=== PATIENT | female | born 1970 | race African-American/Black ===

== ENCOUNTER → 2020-01-20 | Day surgery (SDC) | payer OTHER ==
[~2020-01-20] MED LIST: AMITRIPTYLINE H50 MG PO; LIDOCAINE HCL 2% LOCAL INJ 5 ML SDV VIAL INJ ONE; MAXZIDE 37.5 M1 EACH PO; MELOXICAM7.5 MG PO; METOPROLOL SUCC50 MG PO; MIDAZOLAM HCL 2 MG/2 ML VIAL ONE; PROPOFOL IV EMULSION 10 MG/ML 20 ML VIAL ONE; SINGULAIR10 MG PO; SUMATRIPTAN SUC25 MG PO
[2020-01-20 08:00] VITALS: BP 105/80
--- NOTE | 2020-01-20 09:48 | Operative Report ---
DATE OF PROCEDURE: 01/20/2020 SURGEON: Stuart Mcgovern MD PREOPERATIVE DIAGNOSIS: Chronic gastroesophageal reflux disease. POSTOPERATIVE DIAGNOSES: 1. Hiatal hernia. 2. Distal esophagitis. 3. Chronic gastroesophageal reflux disease. 4. Duodenal polyp. PREOP INDICATION: Assess for mucosal disease. PROCEDURES: Esophagogastroduodenoscopy with biopsy (CPT 84093). ANESTHESIA: Moderate sedation. INSTRUMENT SETTER: None. FLUID: As per anesthesia. EBL: Minimal. DRAINS: None. COMPLICATIONS: None. SPECIMENS: 1. Biopsy x2 of distal esophagus at the GE junction. 2. Biopsy of duodenal polyp in the 1st portion of the duodenum. GRAFTS: None. FINDINGS: 1. Moderate to large-sized hiatal hernia. 2. Circumferential distal esophagitis at the GE junction. 3. Small duodenal polyp in the 1st portion of the duodenum. PROCEDURE: The patient was brought to the endoscopy suite and was sedated with IV propofol. A preprocedure pause was performed. An adult sized endoscope was introduced to the oropharynx and guided to the 2nd portion of the duodenum. Duodenal polyp was noted and biopsied. There was also moderate to large size hiatal hernia as well as distal esophagitis circumferentially at the GE junction, which was biopsied x2. Prior to removing the endoscope, the stomach was desufflated. The patient tolerated the procedure well. Type of wound was type 1, clean. Stuart Mcgovern MD C/MODL /[id number]
== END | disposition home or self-care (01) ==
LOC: OR 05:10
PROVIDERS: ATTEND Surgery
DX: K21.9 Gastro-esophageal reflux disease without esophagitis (principal); K31.7 Polyp of stomach and duodenum; K29.50 Unspecified chronic gastritis without bleeding; K20.9 Esophagitis, unspecified; B96.81 Helicobacter pylori [H. pylori] as the cause of diseases classified elsewhere; K44.9 Diaphragmatic hernia without obstruction or gangrene; I10 Essential (primary) hypertension; E66.01 Morbid (severe) obesity due to excess calories; R06.02 Shortness of breath; F41.9 Anxiety disorder, unspecified; Z88.1 Allergy status to other antibiotic agents; Z01.810 Encounter for preprocedural cardiovascular examination; Z01.812 Encounter for preprocedural laboratory examination; Z68.42 Body mass index [BMI] 45.0-49.9, adult
CPT/HCPCS: 43239; 87635; 88305; 88342; 93005; J2001; J2250; J2704